=== PATIENT | female | born 1970 | race Caucasian/White ===

== ENCOUNTER 2017-11-12 22:15 | Emergency (ER) | payer OTHER ==
[~2017-11-12] VITALS: Ht 162.6 cm; Wt 97.5 kg
[2017-11-12 22:23] VITALS: Ht 162.6 cm; Wt 97.5 kg
[2017-11-12 23:28] VITALS: BP 137/81
== END 2017-11-12 23:28 | disposition home or self-care (01) ==
LOC: ED 22:15
DX: S86.812A Strain of other muscle(s) and tendon(s) at lower leg level, left leg, initial encounter (principal); X58.XXXA Exposure to other specified factors, initial encounter; Y93.89 Activity, other specified; Y92.89 Other specified places as the place of occurrence of the external cause; Y99.8 Other external cause status; Z88.0 Allergy status to penicillin